=== PATIENT | female | born 1985 | race Caucasian/White ===

== ENCOUNTER 2021-02-28 08:37 | Emergency (ER) | payer MEDICAID ==
[~2021-02-28] VITALS: Ht 175.3 cm; Wt 83.6 kg
[~2021-02-28 08:37] MED LIST: AMOX875T2 PO; CYCL-1 PO; HYDR-4383 PO; ONDA4TAB12 PO; ZOF4T PO
[2021-02-28 09:21] VITALS: BP 133/76
[2021-02-28] MEDS ORDERED: PROCHC RC (09:55)
== END 2021-02-28 10:24 | disposition home or self-care (01) ==
LOC: ER 08:38
DX: K64.5 Perianal venous thrombosis (principal); F12.90 Cannabis use, unspecified, uncomplicated; Z56.0 Unemployment, unspecified; Z79.2 Long term (current) use of antibiotics; Z79.899 Other long term (current) drug therapy
CPT/HCPCS: 99283